=== PATIENT | male | born 1950 | race Caucasian/White ===

== ENCOUNTER 2021-05-09 19:25 | Emergency (ER) | payer MEDICARE ==
[~2021-05-09] VITALS: Ht 172.7 cm; Wt 53.1 kg
[2021-05-09 19:25] VITALS: BP 86/55
--- NOTE | 2021-05-09 19:31 | PHYS DOC ---
Past History Past Medical History: Dementia Past Medical History Parkinson General Adult HPI: HPI: ".. I am okay.. only my toes...hurt... "...Pt. "..He got bad Parkinson Dementia.. and he wander off from us .. and gone maybe 20 min...could not be more than 50 min... but [address].. the police found him in the rain.. dressed in winter clothing.. .He said was going to get a job at the [employer].... 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 Then he got Parkinson.. and had a rapid decline.. We did have him on Hospice...but he seemed to get better.... His old doctor retired.. I can 't see anything wrong with him currently.. it just police said get him check out.. He does complain of his toes.. but we have as follow up with podiatry... " Patient is a 70 year old male who presents with above hx and no new complaints. Patient denies any recent falls. Did have a fall on Thursday and skinned his right elbow. That area appears to be healing well with no tenderness. Patient has had no recent changes in meds. Patient is . Is retired in [place] and currently has no primary care. Patient is to follow-up with primary care. Discussed of family if they wish to do some baseline labs or x-rays. Currently have a decline in case the new doctor wanted different labs or x-rays. I advised family that patient could return at any time if they want a more in- depth work-up. Currently both the and daughter feel that this is unnecessary. has medical power of immigration attorney Review of Systems: Review of Systems: Constitutional: Denies fever or chills Eyes: Denies change in visual acuity HENT: Denies nasal congestion or sore throat Respiratory: Denies cough or shortness of breath Cardiovascular: Denies chest pain or edema GI: Denies abdominal pain, nausea, vomiting, bloody stools or diarrhea : Denies dysuria Musculoskeletal: Denies back pain or joint pain patient. Complains of toe pain Integument: Denies rash Neurologic: Denies headache, focal weakness or sensory changes Endocrine: Denies polyuria or polydipsia Lymphatic: Denies swollen glands Psychiatric: History of anxiety Family History: Family History: Noncontributory Current Medications: Current Meds: See nursing for home meds Allergies: Allergies: No known drug allergies Physical Exam: PE: Constitutional: no acute distress, non-toxic appearance. [] HENT: Normocephalic, atraumatic, bilateral external ears normal, oropharynx moist, no oral exudates, nose normal. [] Eyes: PERRLA, EOMI, conjunctiva normal, no discharge. Glasses Neck: Normal range of motion, no tenderness, supple, no stridor. [] Cardiovascular:Heart rate regular rhythm, no murmur [] Lungs & Thorax: Bilateral breath sounds equal apex on auscultation [] Abdomen: Bowel sounds normal, soft, no tenderness, no masses, no pulsatile masses. [] Skin: Warm, dry, no erythema, no rash. [] Back: No tenderness, no CVA tenderness. [] Extremities: No tenderness, no cyanosis, no clubbing, ROM intact, no edema. Wearing sandals. Walks with a cane. Has shuffling gait. Small abrasion right elbow appears to be old Neurologic: Alert and oriented X 3, normal motor function, normal sensory fun ction, no focal deficits noted. [] Psychologic: Affect anxious, judgement obviously impaired, mood normal. [] EKG: EKG: Declined [] Radiology/Procedures: Radiology/Procedures: Declined by family [] Heart Score: C/O Chest Pain: N/A Risk Factors: Risk Factors: DM, Current or recent (<one month) smoker, HTN, HLP, family history of CAD, obesity. Risk Scores: Score 0 - 3: 2.5% MACE over next 6 weeks - Discharge Home Score 4 - 6: 20.3% MACE over next 6 weeks - Admit for Clinical Observation Score 7 - 10: 72.7% MACE over next 6 weeks - Early Invasive Strategies Course & Med Decision Making: Course & Med Decision Making Pertinent Labs and Imaging studies reviewed. (See chart for details) Denies family any concerns return for further work-up to be completed. Recommend follow-up with primary care. Keep follow-up with specialist. Return if any concerns Impression: 1. Advanced Parkinson's 2. Parkinson's dementia 3. Toe pain consult from degenerative changes. [] Dragon Disclaimer: Vic Disclaimer: This electronic medical record was generated, in whole or in part, using a voice recognition dictation system. Departure Departure: Referrals: PCP,NO (PCP) Vic Disclaimer This chart was dictated in whole or in part using Voice Recognition software in a busy, high-work load, and often noisy Emergency Department environment. It may contain unintended and wholly unrecognized errors or omissions. JAVED KAUR MD May 09, 2021 19:30
[2021-05-09] MEDS ORDERED: PIMA34CA PO (20:26)
[2021-05-09] MEDS ORDERED: MELA5TAB20 PO (20:26)
[2021-05-09] MEDS ORDERED: MELO15TA23 PO (20:26)
[2021-05-09] MEDS ORDERED: LORA-254 PO (20:26)
[2021-05-09] MEDS ORDERED: RIVA3CAP15 PO (20:26)
[2021-05-09] MEDS ORDERED: LORA-52 PO (20:26)
[2021-05-09] MEDS ORDERED: ESCITALOPRAM OX20 MG PO (20:26)
[2021-05-09] MEDS ORDERED: CARB1TAB22 PO (20:26)
[2021-05-09] MEDS ORDERED: QUET25TA5 PO (20:26)
== END 2021-05-09 20:15 | disposition home or self-care (01) ==
LOC: ER 19:25
DX: S50.311A Abrasion of right elbow, initial encounter (principal); M79.676 Pain in unspecified toe(s); G20 Parkinson's disease; F02.80 Dementia in other diseases classified elsewhere, unspecified severity, without behavioral disturbance, psychotic disturbance, mood disturbance, and anxiety; W18.39XA Other fall on same level, initial encounter; Y93.89 Activity, other specified; Y92.89 Other specified places as the place of occurrence of the external cause; Y99.8 Other external cause status
CPT/HCPCS: 99284